=== PATIENT | female | born 1950 | race Caucasian/White ===

== ENCOUNTER → 2019-03-17 11:16 | Outpatient (CLI) | payer MEDICARE, SELFPAY ==
[2019-03-17 12:57] LABS: BUN Creatinine Ratio 36.7 (6-22); Blood Urea Nitrogen 22 mg/dL (7-17); Calcium 9.5 mg/dL (8.4-10.2); Carbon Dioxide 29 mmol/L (22-32); Chloride 99 mmol/L (98-107); Estimated Glomerular Filt Rate > 60.0 mL/min (>60); Glucose 81 mg/dL (80-110); HEMOLYSIS < 15 (0-50); Potassium 4.5 mmol/L (3.4-5.1); Sodium 138 mmol/L (137-145)
== END ==
PROVIDERS: Visit Provider Internal Medicine
DX: I10 Essential (primary) hypertension (principal)
CPT/HCPCS: 36415; 80048

== ENCOUNTER → 2019-04-02 12:04 | Outpatient (CLI) | payer MEDICARE, SELFPAY ==
--- NOTE | 2019-04-02 | DI.US.S_ITS ---
ULTRASOUND OF LEFT BREAST AND AXILLA: 04/02/2019 CLINICAL: Left axillary pain with thickening x 9 months. Comparison is made to exams dated: 04/09/2018 mammogram, 04/16/2017 mammogram, 03/29/2016 mammogram, and 03/28/2015 mammogram - [facility]. Color flow and real-time ultrasound of the left breast axilla were performed. Chávez scale images of the real-time examination were reviewed. Targeted ultrasound was performed of the left axilla. No underlying mass or abnormality is identified. There is no left axillary lymphadenopathy. IMPRESSION: NEGATIVE 1) No ultrasound findings to explain patient's reported left axillary pain and thickening. No left axillary lymphadenopathy identified by ultrasound. Recommend clinical follow-up for further evaluation and management of the patient's reported symptoms. 2) There is no sonographic evidence of malignancy in the imaged areas of the left axilla. Return to annual screening mammography schedule is recommended. The patient is advised to monitor her breasts and to return sooner for re-evaluation should she feel anything grow or change. This exam was interpreted at Station ID: [id number]. Electronically Signed By: Bill Malik M.D. ecl/:04/02/2019 12:51:10 letter sent: Clinical Evaluation Ultrasound BI-RADS: 1 Negative
== END ==
PROVIDERS: PCP Internal Medicine; Visit Provider Internal Medicine
DX: N64.4 Mastodynia (principal); M79.622 Pain in left upper arm
CPT/HCPCS: 76882

== ENCOUNTER → 2020-05-17 11:39 | Outpatient (CLI) | payer MEDICARE, SELFPAY ==
[2020-05-17 12:39] LABS: Add Manual Diff / Slide Review NO; Basophils Absolute Auto 100 /uL (0-100); Eosinophils Absolute Auto 100 /uL (0-450); Eosinophils Percent Auto 1.5 % (2-4); Hematocrit 40.1 % (36-46); Hemoglobin 13.5 g/dL (12.0-16.0); Lymphocytes Absolute Auto 1600 /uL (1100-4500); Lymphocytes Percent Auto 19.4 % (25-40); Mean Corpuscular HGB Conc 33.6 % (30-36); Mean Corpuscular Hemoglobin 30.1 PG (26-34); Mean Corpuscular Volume 89.6 fL (80-100); Monocytes Absolute Auto 500 /uL (0-900); Monocytes Percent Auto 6.3 % (3-14); Neutrophils Absolute Auto 5800 /uL (1500-7000); Neutrophils Percent Auto 71.8 % (50-75); Platelet Count 254 X10^3/uL (150-400); Red Blood Cell Count 4.48 X10^6/uL (4.0-5.2); Red Cell Distribution Width 13.1 % (11.6-14.8); White Blood Cell Count 8.1 X10^3/uL (4.5-11.0)
--- NOTE | 2020-05-17 13:03 | DI.CT.S_ITS ---
PROCEDURE: CT ABDOMEN PELVIS WO CON INDICATIONS: RT LOWER QUADRANT PAIN TECHNIQUE: Noncontrast 5 mm thick sections acquired from the diaphragms to the symphysis. 5 mm coronal and sagittal reformats were then performed. For radiation dose reduction, the following was used: automated exposure control, adjustment of mA and/or kV according to patient size. COMPARISON: None. FINDINGS: Image quality: Excellent. ABDOMEN: Lung bases: Lung bases are clear. Heart size is normal. Solid organs: Liver is normal in size but at the inferior border of the right posterior hepatic segment there is a lobulated masslike structure that measures up to 5 cm AP and 3.7 cm transverse. This is best seen on series 2, image 34. . Gallbladder appears normal . Pancreas is normal in contours. Spleen is normal in size. No adrenal nodules. Kidneys are normal in size, without hydronephrosis or nephrolithiasis. Peritoneum and bowel: Unenhanced bowel loops demonstrate normal wall thickness and caliber. No free fluid or air. Nodes and vessels: No retroperitoneal or mesenteric adenopathy by size criteria. Aorta and inferior vena cava are normal in caliber. Miscellaneous: No ventral hernias. PELVIS: Genitourinary: Bladder wall thickness is normal. Note is made of a right adnexal cystic masslike structure measuring up to 5.6 cm AP and 4.5 cm transverse, with internal radiodensity of water. A cystic neoplasm could produce this appearance, an unexpected finding in a postmenopausal patient. Miscellaneous: No inguinal hernias or adenopathy. A normal appendix is seen at the right lower quadrant. Bones: No suspicious bony lesions. No vertebral body compression fractures. IMPRESSION: 2 right-sided abnormalities are found that could explain right-sided symptomatology. One is located at the inferior margin of the right posterior hepatic segment or a lobulated mass lesion is present potentially a primary or metastatic neoplasm. Nuclear medicine PET-CT scanning would be beneficial to determine whether this has imaging findings consistent with malignancy. The 2nd abnormality is a water density cystic masslike structure at the right adnexa, which should be further characterized utilizing transvaginal pelvic ultrasound. CT is inaccurate utilizing noncontrast technique for accurate characterization of this potentially neoplastic mass. Normal appendix found. Dictated by: Clarence Guaman M.D. on 05/17/2020 at 15:22 Approved by: Clarence Guaman M.D. on 05/17/2020 at 15:27
[2020-05-17 13:16] LABS: BUN Creatinine Ratio 37.7 (6-22); Blood Urea Nitrogen 23 mg/dL (7-17); Calcium 9.3 mg/dL (8.4-10.2); Carbon Dioxide 32 mmol/L (22-32); Chloride 101 mmol/L (98-107); Estimated Glomerular Filt Rate > 60.0 mL/min (>60); Glucose 94 mg/dL (80-110); HEMOLYSIS < 15 (0-50); Potassium 4.4 mmol/L (3.4-5.1); Sodium 137 mmol/L (137-145)
== END ==
PROVIDERS: PCP Internal Medicine; Referring Provider Internal Medicine; Visit Provider Internal Medicine
DX: R10.31 Right lower quadrant pain (principal); R19.09 Other intra-abdominal and pelvic swelling, mass and lump; R16.0 Hepatomegaly, not elsewhere classified; I10 Essential (primary) hypertension
CPT/HCPCS: 36415; 74176; 80048; 85025

== ENCOUNTER → 2020-05-29 10:40 | Outpatient (CLI) | payer MEDICARE, SELFPAY ==
--- NOTE | 2020-05-29 | DI.US.S_ITS ---
PROCEDURE: US PELVIC COMPLETE INDICATIONS: RIGHT ADNEXAL MASS TECHNIQUE: Real-time scanning was performed of the pelvic organs, with image documentation. Additional endovaginal scanning was necessary due to incomplete visualization of the adnexal and endometrial structures by transabdominal scanning. COMPARISON: None. FINDINGS: Transabdominal scanning: Limited scanning through the kidneys shows no hydronephrosis. No pathologic free abdominal or pelvic fluid. Endovaginal scanning: Uterus: Uterus is normal in size at 7.3 x 3.1 x 5.1 cm. Endometrial stripe is abnormally thickened for a patient of this age, measuring 9 mm. Numerous cystic areas are seen and there is generalized heterogeneity. No abnormal vascularity can be seen. Ovaries: Neither ovary can be seen. There is a large cystic mass involving the right adnexal region, which measures 5.6 x 3.6 x 4.8 cm. No nodularity or abnormal vascularity can be seen. IMPRESSION: A right adnexal mass is seen, without leslie suspicious features. In a patient of this age, concern is raised for an indolent cystic ovarian neoplasm. Neither ovary is seen. Abnormally thickened endometrial stripe, with heterogeneity and cystic regions. Please correlate with a history of postmenopausal bleeding. Please consider endometrial biopsy, if clinically appropriate. Dictated by: Rui Ordonez M.D. on 05/29/2020 at 11:59 Approved by: Rui Ordonez M.D. on 05/29/2020 at 12:02
== END ==
PROVIDERS: PCP Internal Medicine; Referring Provider Internal Medicine; Visit Provider Internal Medicine
DX: R93.89 Abnormal findings on diagnostic imaging of other specified body structures (principal); R19.09 Other intra-abdominal and pelvic swelling, mass and lump
CPT/HCPCS: 76830; 76856

== ENCOUNTER → 2020-06-05 10:38 | Outpatient (CLI) | payer MEDICARE, SELFPAY ==
[2020-06-05 12:52] LABS: Cancer Antigen 125 8.8 U/mL (0-35)
[2020-06-09 12:03] LABS: Human Epididymis Prot 4 67.6 pmol/L (0.0-96.9)
== END ==
PROVIDERS: Specialist; PCP Internal Medicine; Referring Provider Internal Medicine; Visit Provider Internal Medicine
DX: N94.89 Other specified conditions associated with female genital organs and menstrual cycle (principal); R93.5 Abnormal findings on diagnostic imaging of other abdominal regions, including retroperitoneum; R93.89 Abnormal findings on diagnostic imaging of other specified body structures
CPT/HCPCS: 36415; 86304; 86305

== ENCOUNTER → 2020-07-03 13:35 | Outpatient (CLI) | payer MEDICARE, SELFPAY ==
--- NOTE | 2020-07-03 | DI.MRI.S_ITS ---
PROCEDURE: MR LUMBAR SPINE WO CON INDICATIONS: Radiculopathy, lumbar region TECHNIQUE: Noncontrast sagittal T1 spin echo and T2 fast echo, sagittal STIR, axial T1 and T2 fast spin echo through the lumbar spine. In cases with scoliosis, additional coronal T2 fast spin echo may be performed. COMPARISON: [facility], CT, CT ABDOMEN PELVIS WO CON, 05/17/2020, 13:53. FINDINGS: Image quality: Excellent. Alignment and Curvature: 5 lumbar type vertebral bodies are present by CT. There is loss of normal lumbar lordosis. There is mild grade 1 retrolisthesis of L1 on L2, L2 on L3, L3 on L4, and L4 on L5. Bone Marrow: Marrow is of normal overall signal. No acute vertebral body compression fractures. Mild reactive signal within the endplates adjacent to the T12-L1, L1-L2, L2-L3, L3-L4, and L4-L5 intervertebral discs. Spinal Cord: Conus medullaris terminates at the T12-L1 disc space level. Visualized cord demonstrates normal signal and size. Paraspinous Soft Tissues: No paravertebral masses. T12-L1: Moderate disc height loss and desiccation. Mild diffuse disc bulge. Mild facet and ligamentum flavum hypertrophy. Mild canal stenosis. Mild bilateral foraminal stenosis. L1-L2: Moderate disc height loss and desiccation. Mild diffuse disc bulge. Mild facet and ligamentum flavum hypertrophy. Mild epidural lipomatosis. Mild canal stenosis. Mild bilateral foraminal stenosis. L2-L3: Moderate disc height loss and desiccation. Mild diffuse disc bulge. Mild facet and ligamentum flavum hypertrophy. Mild epidural lipomatosis. Moderate canal stenosis. Moderate subarticular foraminal stenosis bilaterally. L3-L4: Moderate disc height loss and desiccation. Mild diffuse disc bulge. Mild facet and ligamentum flavum hypertrophy. Mild epidural lipomatosis. Moderate canal stenosis. Moderate right and severe left foraminal stenosis. Left L3 nerve root compression. L4-L5: Moderate disc height loss and desiccation. Mild diffuse disc bulge with superimposed right paracentral disc extrusion which extends inferiorly within the lateral recess and anterior epidural space. Mild facet and ligamentum flavum hypertrophy. Severe canal stenosis. Moderate to severe left and moderate right foraminal stenosis. Compression of the right L5 nerve root within the lateral recess. Mild left L4 nerve root compression within the neural foramen. L5-S1: Mild disc height loss. Moderate disc desiccation. Mild diffuse disc bulge. Moderate bilateral facet hypertrophy. Mild ligamentum flavum hypertrophy. Mild canal stenosis. Moderate bilateral foraminal stenosis. IMPRESSION: 1. Multilevel degenerative disc and facet disease, as well as ligamentum flavum hypertrophy and epidural lipomatosis. 2. Multilevel canal stenoses, worst at L4-L5, where there is severe canal stenosis. Moderate canal stenosis at L3-L4. 3. Multilevel foraminal stenoses, worst at L3-L4 and L4-L5 where there is associated intraforaminal nerve root compression. 4. L4-L5 disc extrusion causing right L5 nerve root compression. 5. Recommend correlation with clinical symptoms to ascertain relevance of these findings. Dictated by: Liane Trotter M.D. on 07/03/2020 at 14:28 Approved by: Liane Trotter M.D. on 07/03/2020 at 14:33
--- NOTE | 2020-07-03 13:38 | DI.MRI.S_ITS ---
PROCEDURE: MR ABDOMEN WO/W CON INDICATIONS: f/u hepatic mass TECHNIQUE: Coronal HASTE, axial 2D FLASH in- and [id number]; axial breath-hold T2 FSE. Dynamic axial VIBE during the administration of contrast; post-contrast coronal VIBE or 2D FLASH with fat saturation from the hepatic dome to the iliac crests. Optional diffusion weighted imaging and ADC may be performed. COMPARISON: [facility], CT, CT ABDOMEN PELVIS WO CON, 05/17/2020, 13:53. FINDINGS: Image quality: Excellent. Lung bases: No basal pleural effusions. Heart size is normal. Solid organs: Liver is normal in size and enhancement except at the inferior aspect of the medial right posterior hepatic segment, segment 6, where a lobulated 4.9 cm x 3.4 cm elevated T2 and diffusion signal sharply demarcated mass is present, showing discontinuous peripheral nodular enhancement and centripetal fill in by contrast on delayed imaging. Gallbladder appears normal. Biliary system is non dilated. Pancreas is normal in morphology. Spleen is normal in size and enhancement. No adrenal nodules. Both kidneys demonstrate normal size and enhancement, without hydronephrosis. Nodes and vessels: No retroperitoneal or mesenteric adenopathy by size criteria. Aorta and inferior vena cava are normal in size. Bowel and peritoneum: Unenhanced bowel loops are normal in caliber. No free fluid. Bones and soft tissues: No ventral hernias. Bone marrow is normal in overall signal. IMPRESSION: Benign right hepatic hemangioma produces the medial right posterior segment 6 liver lesion seen earlier on CT scanning, no evidence of concurrent hepatic metastatic disease. Dictated by: Clarence Guaman M.D. on 07/03/2020 at 16:48 Approved by: Clarence Guaman M.D. on 07/03/2020 at 16:53
== END ==
PROVIDERS: PCP Internal Medicine; Referring Provider Physician Assistant; Visit Provider Physician Assistant
DX: D18.09 Hemangioma of other sites (principal); M46.1 Sacroiliitis, not elsewhere classified; M51.16 Intervertebral disc disorders with radiculopathy, lumbar region; M51.17 Intervertebral disc disorders with radiculopathy, lumbosacral region; M48.061 Spinal stenosis, lumbar region without neurogenic claudication; M48.07 Spinal stenosis, lumbosacral region
CPT/HCPCS: 72148; 74183

== ENCOUNTER → 2020-10-12 13:29 | Outpatient (CLI) | payer MEDICARE, SELFPAY ==
[2020-10-12 14:22] LABS: COVID19 -Nasal RAPID Negative (Negative)
== END ==
PROVIDERS: PCP Internal Medicine; Visit Provider Specialist
DX: Z01.812 Encounter for preprocedural laboratory examination (principal); Z20.822 Contact with and (suspected) exposure to COVID-19
CPT/HCPCS: 87635

== ENCOUNTER 2020-10-14 10:14 | Observation (INO) | payer MEDICARE, SELFPAY ==
[2020-10-13] VITALS (16 sets, daily range): BP systolic 108–148; BP diastolic 43–81; PULSE 57–96; RESP 10–20; TEMP 36–37.4; O2SAT 94–100; BMI 31.4; BMI 32.1
--- NOTE | 2020-10-13 | PATH_ITS ---
[facility] Accession Number: [id number] . 01 Material submitted: . uterus - UTERUS; BILATERAL FALLOPIAN TUBES; BILATERAL OVARIES . 02 Diagnosis: Uterus, Bilateral Fallopian Tubes, Bilateral Ovaries, Hysterectomy, Bilateral Salpingo-oophorectomy: 1. Uterus with benign endometrial polyp with tubal metaplasia. 2. Benign leiomyoma. 3. Right ovarian serous cystadenoma. 4. Left ovary with endosalpingiosis. 5. Right fallopian tube with vascular congestion, favor procedure related, and paratubal cyst. 6. Left fallopian tube with vascular congestion, favor procedure related, adherent ovary, and paratubal cyst. 7. Cervix with no significant diagnostic abnormality. 8. No evidence of malignancy or atypical hyperplasia. [facility] 10/19/2020 1723 Local . 02 Electronically signed: . Mireille Sequeira MD, Pathologist NPI- [id number] . 01 Gross description: . Received in formalin, labeled with the patient's name and uterus, bilateral fallopian tubes, and bilateral ovaries, is an intact uterus and cervix with bilateral adnexa attached. The uterus, 42 g, 7.5 cm fundus to cervix, 5.0 cm cornu to cornu, 3.5 cm anterior to posterior, is covered with purple-ayala, smooth, dull mucosa with a 3.5 x 3.5 cm cervix covered with pink-ayala, smooth, glistening mucosa and 1.2 cm os, and has and endometrial cavity measuring 3.0 cm length, 2.0 cm cornu to cornu. Within the cavity is a 1.9 x 1.8 x 0.5 cm, pink-ayala, sessile polyp adherent to the anterior fundus, 2.2 cm to the lower uterine segment. This polyp is entirely submitted. The remaining endometrium is pink-ayala, flat, maximum thickness 0.2 cm. The myometrium is pink-ayala, trabeculated, maximum thickness 1.2 cm, with a 0.6 x 0.6 x 0.5 cm, pale ayala, whorled myometrial nodule at anterior aspect. The left fimbriated fallopian tube is 5.5 cm length, 0.6 cm diameter, with purple-ayala serosa and paratubal cysts, and lumen up to 0.3 cm. The left ovary, 3.0 x 1.8 x 1.0 cm, has a pink-ayala, convoluted outer surface and is grossly cystic. Sectioning reveals yellow and pale ayala ovarian parenchyma with scattered cysts, 0.2-1.0 cm in greatest dimension. The right fimbriated fallopian tube is 6.5 cm length, 0.5 cm diameter, with purple-ayala serosa, paratubal cysts, and pinpoint lumen. The right ovary is grossly distended and cystic, 57 g, 6.0 x 5.0 x 3.5 cm, and is smoothly lined without papillary excrescences, containing clear serous fluid, no remaining ovarian parenchyma identified. [employer] sections are submitted, along with the entirety of the endometrial polyp. . SUMMARY OF SECTIONS: A1. Anterior cervix, lower uterine segment, one piece. A2. Posterior cervix, lower uterine segment, one piece. A3-A5. Anterior endomyometrium with polyp, one piece each. A6. Posterior endomyometrium, two pieces. A7. Left fallopian tube fimbria and cross-sections, four pieces. A8. Left ovary, premium service representative, two pieces. A9. Right fallopian tube fimbria and cross-sections, four pieces. A10-A11. Right ovary, four pieces each. ([id number]) /DONNA 10/14/[address] [place] [address] . 02 Microscopic: . A3, A5: Additional levels were examined. . A7, A8: CD10 immunohistochemical stain was performed on blocks A7 and A8 in order to evaluate cells of interest and is negative for CD10 expression, which mitigates against an interpretation of endometrial stroma/endometriosis. The control stain showed appropriate reactivity. . * This test was developed and its performance characteristics determined by [facility]. It has not been cleared or approved by the U.S. Food and Drug Administration. The FDA has determined that such clearance or approval is not necessary. This test is used for clinical purposes. It should not be regarded as investigational or for research. . 02 Pathologist provided ICD-10: N83.291, N94.89, D25.9 . 02 CPT . 483391, A84512 Specimen Comment: A duplicate report has been generated due to demographic updates. Performed at: [address] [facility] [address] [address], [place], [place] [id number] MD Lupillo Yu MD Phone: [phone] Performed at: 02 [facility] [address] [place], [place] [id number] MD Mireille Sequeira MD Phone: [phone]
[2020-10-13] MEDS: LACTATED RINGERS 1,000 ML 42 ML IV ×2 (09:04→12:01)
[2020-10-13] MEDS: ACETAMINOPHEN 325 MG TABLET 975 MG PO (09:18)
--- NOTE | 2020-10-13 09:35 | PM.PREOP ---
Pre-operative Note COVID-19 COVID-19 status: Negative Result date/Date tested (Pos, Neg/Pending): 10/12/20 Interval Note History & Physical reviewed/Exam performed by Physician: Yes Changes to H&P: No
[2020-10-13] MEDS: CEFAZOLIN 2 GM/100 ML FROZ.PIGGY IV (10:30)
[2020-10-13] MEDS: BUPIVACAINE 0.5% W/ EPI (PF) 30 ML VIAL INJ (11:00)
--- NOTE | 2020-10-13 11:24 | SUR.OPER ---
Lithotomy on padded OR bed. [place] Pad Positioner under torso. Head on pillow with neck roll per request by patient, arms padded and tucked at sides. Padded arm boards also supporting patients tucked arms. Legs secured in padded yellow fins stirrups.
--- NOTE | 2020-10-13 12:34 | P.OP_ITS ---
Operative Date/Time/Diagnoses Date of procedure: 10/13/20 Time of procedure: 12:34 Pre-op diagnosis: Right ovarian cyst, partial uterovaginal prolapse rectocele predominant, gaping introitus Post-op diagnosis: same Procedure & Clinicians Procedure: Laparoscopic-assisted vaginal hysterectomy with bilateral salpingo oophorectomy, posterior repair with bilateral sacrospinous ligament fixation and perineoplasty Same procedure as scheduled: Yes Indications: Right ovarian cyst, symptomatic partial uterine vaginal prolapse, rectocele predominant with gaping introitus Surgeon: Aliza Wagner Sales Support Engineer: Nova Vega Click Yes if Unassisted: No Anesthesia Type: General Operative Notes Findings: Benign appearing right ovarian cyst, normal appearing left ovary, tubes, uterus. Gaping introitus, rectocele with enterocele, no significant cystocele, urethra well supported. Closure Type: primary Specimen(s): other (Uterus, tubes, and ovaries) Applied: catheter (Kenny) and other (Vaginal packing) Estimated Blood Loss (mL): 50 Blood products transfused: none Procedure in detail: Patient was brought to the operating room where she underwent general anesthesia. She was placed in [facility] stirrups. A check system was reviewed with the staff in the room. 2 gram Ancef were in prior to beginning case. Warming was in place. Pulsatile stockings were in place and functional. She was prepped and draped in the usual sterile fashion. A Kenny catheter was placed. A single-tooth tenaculum was placed on the anterior lip of the cervix. The cervix was dilated to #6 Hegar dilator to allow the uterine man ipulator to be placed through the cervix into the uterus with the balloon inflated with 3 mL of air. A Kenny catheter was placed. Area of the umbilical incision was injected with 0.25% Marcaine with epinephrine. An incision was made with the scalpel. The varies needle was placed in the abdomen. Correct placement was noted by withdrawing on the syringe and the having a drop of water fall easily through the syringe into the abdomen. The abdomen was insufflated with CO2. 5 mm trochars were placed in the right and left lower quadrant under direct visualization. There did not appear to be any damage with placement of the trochars. The LigaSure was used to cauterize and cut the infundibulopelvic ligaments bilaterally. Dr. Vega doing the left side of the procedure, and holding the camera. Sequential bites were taken down the broad ligament freeing the fallopian tubes and ovaries bilaterally. Next the procedure was switched to a vaginal approach. A double-tooth tenaculum was placed on the cervix and the Marcaine with epinephrine was injected circumferentially around the cervix. An incision was made with a scalpel all and it tissue pushed superiorly with blunt dissection. Dr. Vega assisted with retraction. A posterior colpotomy incision was made. The anterior colpotomy incision was made. The uterosacral ligaments were clamped, cut, and ligated with the LigaSure. Sequential bites were taken up the cardinal and broad ligaments with the LigaSure. The uterus tubes and ovaries were removed vaginally. Adequate hemostasis noted. The vaginal cuff was closed from anterior to posterior with [id number] sutures of 0 Vicryl suture. The posterior vaginal wall was injected with a dilute solution of 0.25% Marcaine with epinephrine. An incision was made with the s calpel removing a wedge shape tissue in the posterior fourchette. The dissection was undertaken laterally. 0 Prolene suture with the Capio passer was placed through the uterosacral ligament on the right side and sutured to the underside of the vagina. The same procedure was performed on the opposite side. A finger was placed in the rectum to be sure there were no sutures placed through the rectal mucosa. The enterocele diameter was decreased with a pursestring suture of 2 0 Vicryl suture. The uterosacral sutures were tightened down. Plications sutures of 0 Vicryl suture were placed over the rectocele. The vaginal incision was closed with 2-0 Vicryl suture to the hymen. The perineal body was built up with plication sutures of 0 Vicryl suture. The skin was closed with 2 0 Vicryl suture. Vaginal packing was placed in the vagina and the Kenny left in place. The abdomen was reinsufflated and adequate hemostasis was noted. The CO2 was allowed to escape from the abdomen and the trochars were removed. The skin was closed with 4-0 Monocryl. Counts of instruments and sponges were correct. Patient went to recovery room in good condition. Dr. Vega was present throughout the entire case doing her side of the procedure, holding the camera, and helping with retraction and the vaginal portion of the case. Complications: none Post-operative Condition: stable Disposition: Acute Care Plan for aftercare: Vaginal packing will be left in until a.m. and then Kenny and vaginal packing will be removed home after
--- NOTE | 2020-10-13 13:35 | SUR.PHASEI ---
1326 patient to room 221, spouse present. Pt repeatedly states that 'everyone is so nice.' Denies pain/nausea. Personal tote, clothing bag, cell phone, glasses, and cane to room with her. Hand-off to Loyd Cabrera RN. Report previously called to her. RN, Student nurse, and JOB TRAINING SUPERVISOR in the room. She stated that they would do the intake without me staying present. Bed remains elevated per their request with assurance that they will lower it when dont. No further questions. Pt pleasant and comfortable.
--- NOTE | 2020-10-13 13:38 | SUR.PHASEI ---
132 Dr. Thornton notified of urine output at 50ml
[2020-10-13] MEDS: LACTATED RINGERS 1,000 ML 100 ML IV (14:25)
--- NOTE | 2020-10-13 14:48 | PC.NURSE ---
Patient admitted around 1330, she has small incisions sites to her lower abdomen that are cdi, she has packing to vagina with saline gauze. There is a elias catheter present and patient has put out 50cc of clear yellow urine. IVF at LR at 100cc/hr. Patient has clear mentation and is tolerating some serbian yogurt.
[2020-10-13] MEDS: KETOROLAC 30 MG/ML VIAL 15 MG IV ×2 (14:54→19:51)
[2020-10-13] MEDS: lisinopriL 20 MG TABLET 40 MG PO (19:56)
[2020-10-13] MEDS: DOCUSATE 250 MG CAPSULE PO (21:12)
[2020-10-13] MEDS: ACETAMINOPHEN 325 MG TABLET 650 MG PO (21:48)
[2020-10-14 00:15] VITALS: O2SAT 95
[2020-10-14] MEDS: LACTATED RINGERS 1,000 ML 100 ML IV (00:21)
[2020-10-14] MEDS: KETOROLAC 30 MG/ML VIAL 15 MG IV ×2 (02:02→08:24)
[2020-10-14 05:08] VITALS: BP 124/70; PULSE 68; RESP 18; TEMP 36.4; O2SAT 97
[2020-10-14] MEDS: PANTOPRAZOLE 20 MG TABLET PO (06:02)
[2020-10-14 06:25] LABS: Add Manual Diff / Slide Review NO; Basophils Absolute Auto 0 /uL (0-100); Basophils Percent Auto 0.3 % (0-2); Eosinophils Absolute Auto 0 /uL (0-450); Eosinophils Percent Auto 0.1 % (2-4); Hematocrit 34.2 % (36-46); Hemoglobin 11.7 g/dL (12.0-16.0); Lymphocytes Absolute Auto 1100 /uL (1100-4500); Lymphocytes Percent Auto 8.1 % (25-40); Mean Corpuscular HGB Conc 34.1 % (30-36); Mean Corpuscular Volume 87.9 fL (80-100); Monocytes Absolute Auto 1200 /uL (0-900); Monocytes Percent Auto 8.5 % (3-14); Neutrophils Absolute Auto 11500 /uL (1500-7000); Platelet Count 205 X10^3/uL (150-400); Red Blood Cell Count 3.89 X10^6/uL (4.0-5.2); Red Cell Distribution Width 13.2 % (11.6-14.8); White Blood Cell Count 13.8 X10^3/uL (4.5-11.0)
[2020-10-14 07:00] VITALS: O2SAT 98
[2020-10-14 07:19] VITALS: BP 145/60; PULSE 55; RESP 23; TEMP 36.6; O2SAT 98
--- NOTE | 2020-10-14 08:52 | P.DS_ITS ---
History of Present Illness History of Present Illness Date Patient Seen: 10/14/20 Time Patient Seen: 08:53 Chief complaint: LAVH BSO W/RECTOCELE REPAIR & SSLF *OPB* Narrative: Patient underwent a laparoscopic-assisted vaginal hysterectomy with bilateral salpingo oophorectomy, posterior repair with sacrospinous ligament fixation and perineoplasty on 10/13/2020. Discharge Providers Provider Discharge Date: 10/14/20 Primary care physician: Marii Huertas MD Discharge provider: Aliza Wagner MD Summary Hospital Course Discharge Diagnosis: Right ovarian cyst, partial uterovaginal prolapse Hospital Course: Patient underwent a laparoscopic-assisted vaginal hysterectomy with bilateral salpingo oophorectomy, posterior repair with sacrospinous ligament fixation and perineoplasty on 10/13/2020. Patient is having diarrhea she says she took too much stool softener prior to the procedure. She is able to get up to the bathroom. She says she has some discomfort but no specific pain. No nausea. Status at Discharge Cognitive/behavioral status at discharge: oriented Functional status at discharge: independent ambulation Overall status at discharge: patient is progressing back to baseline Time Spent with Patient Time spent: Less than 30 minutes Exam Vital Signs (past 8 hours): - 10/14/20 05:08 Temperature 97.6 F Pulse Rate 68 Respiratory Rate 18 Blood Pressure 124/70 Pulse Oximetry 97 Oxygen Delivery Method Room Air Oxygen Flow Rate 0 Narrative Exam Narrative: Abdomen is soft, nontender. Dressings are clean, dry, intact. Vaginal packing was removed in had mild blood on it. Extremities without edema and nontender. Objective Labs Result Diagrams: 10/14/20 05:15 Labs: Laboratory Results - last 24 hr 10/14/20 05:15 WBC 13.8 H RBC 3.89 L Hgb 11.7 L Hct 34.2 L MCV 87.9 MCH 30.0 MCHC 34.1 RDW 13.2 Plt Count 205 Neut % (Auto) 83.0 H Lymph % (Auto) 8.1 L [place] % (Auto) 8.5 Eos % (Auto) 0.1 L Baso % (Auto) 0.3 Neut # (Auto) 02958 H Lymph # (Auto) 1100 [place] # (Auto) 1200 H Eos # (Auto) 0 Baso # (Auto) 0 PFSH Social History household members: spouse Smoking Status: Former smoker alcohol intake: current Discharge Assessment & Plan Assessment and Plan Assessment: Postoperative day 1 doing well. Plan of Treatment: Patient will be discharged home after bladder trial. Routine precautions reviewed with the patient. She already has her pain medicine ready if needed. Discharge Plan Discharge Plan Patient Disposition: Home Discharge orders & Medications Discharge Orders: Discharge (Order); Ordered 10/14/20 Ordered By: Aliza Wagner Prescriptions: Continued lisinopril 40 mg tablet 40 mg PO DAILY RF: 0 omeprazole 20 mg capsule,delayed release(DR/EC) 20 mg PO DAILY RF: 0 hydrochlorothiazide 12.5 mg capsule 12.5 mg PO DAILY RF: 0 aspirin 81 mg tablet,delayed release (DR/EC) 81 mg PO DAILY RF: 0 oxycodone-acetaminophen 5-325 mg tablet 1 tab PO Q4-6H PRN (Reason: pain) Qty: 20 RF: 0 Follow up/Referrals: Aliza Wagner MD [Physician] - 2 Weeks Marii Huertas MD [Primary Care Provider] - Diet/Activity/Treatments Diet: Regular Activity: Nothing in vagina or lifting over 20 lb for [address] weeks, [address] after 1 week unless within 4 hours of taking narcotic pain medicine Skin/Wound/Dressing Care Report to your healthcare provider any signs of infection, such as:: chills, fever, increased pain and unusual redness Dressing: May remove Band-Aids today , leave Steri-Strips in place for 1 week than get wet and rub off, Visit Report/Discharge Packet Instructions: DI for Hysterectomy Discharge Data Primary Care Provider: Marii Huertas Attending Provider: Aliza Wagner
[2020-10-14] MEDS: hydroCHLOROthiazide 25 MG TABLET 12.5 MG PO (09:00)
--- NOTE | 2020-10-14 10:14 | CM.DANOTE ---
DCP; Case received, EMR reviewed and met with patient. Introduced self and role. Was able to obtain information from patient regarding her baseline activity status prior to her having surgery. DCP assessment completed with information currently available. Patient is a 70 year old female who admitted yesterday morning to the care of the [employer] team. PCP: Dr. Marii Huertas. Payer: confirmed: Medicare/[employer]. Patient came to the hospital via private vehicle for a surgical procedure. She had laparoscopic assisted vaginal hysterectomy with bilateral oophorectomy. Patient has had history of ovarian cyst as well as partial uterovaginal prolapse. Met with patient in her room. She is alert and oriented, pleasant. She was mobilizing in her room independently. She resides in [facility] with her spouse, Danny. Patient confirmed, she has neighbors to help her out if she needs anything, for her has back problems, and is not currently able to do heavy lifting. Patient is independent at her baseline. P: Patient has discharge orders for home today. She will be able to go after she voids. Gem Benitez RN/Editorial Intern
--- NOTE | 2020-10-14 10:14 | PC.NURSE ---
Addendum entered by Sophia Cox R.N. 10/14/20 13:00: Disregard previous note, wrong patient. This patient was also given discharge information regarding f/u appointment with Dr. Wagner, activity, s/s of infection and continuing medications. Patient verbalized understanding. Patient's IV removed by nursing teacher with instructor present. Patient tolerated. Patient discharged via wheelchair. Addendum entered by Sophia Cox R.N. 10/14/20 12:47: Patient and friend, Viridiana given discharge information regarding f/u appointment, new prescriptions, activity and s/s of worsening condition, both verbalized understanding. Patient's IV removed, patient tolerated. Belongings given to Viridiana, including phone, slot supervisor and glasses. Patient discharged via wheelchair. Original Note: Patient A/O x 4. Kenny and packing d/c'd by Dr. Wagner, patient tolerated. OOB multiple times for BM. Refused Colace. BT active x 4. Awaiting void. Patient saline locked. Tolerating intake. Denies N/V. DSG CDI. Abdomen soft, non tender.
== END 2020-10-14 13:21 | disposition home or self-care (01) ==
LOC: OR 10-15 08:56 → AC 10-15 08:56
PROVIDERS: Admitting Provider Specialist; PCP Internal Medicine; Referring Provider Specialist; Visit Provider Specialist
PROC: 0UT9FZZ Resection of Uterus, Via Natural or Artificial Opening With Percutaneous Endoscopic Assistance (ICD-10-PCS; CPT 58552; principal; 2020-10-13 09:45)
PROC: (CPT 58552; 2020-10-13 09:45)
DX: N81.2 Incomplete uterovaginal prolapse (principal); K21.9 Gastro-esophageal reflux disease without esophagitis; I10 Essential (primary) hypertension; R19.7 Diarrhea, unspecified; N94.89 Other specified conditions associated with female genital organs and menstrual cycle; D27.0 Benign neoplasm of right ovary; D25.9 Leiomyoma of uterus, unspecified
CPT/HCPCS: 58552; 57250; 57282; 36415; 85025; G0378; J0330; J0690; J1100; J1885; J2250; J2405; J2704; J3010